=== PATIENT | male | born 1970 | race Caucasian/White ===

== ENCOUNTER 2019-09-10 04:34 | Inpatient (IN) | payer OTHER ==
[~2019-09-10] VITALS: Ht 190.5 cm; Wt 109.1 kg
--- NOTE | ~2019-09-10 | EC ---
PATIENT:SONAM MARTINEZ DATE OF SERVICE: 09/11/19 SEX: M MEDICAL RECORD: [id number] DATE OF : 72 LOCATION:D.M3 D.121 AGE OF PATIENT: 49 ADMISSION DATE: 09/11/19 REFERRING PHYSICIAN: INTERPRETING PHYSICIAN: IJEOMA FARFAN MD ECHOCARDIOGRAM REPORT ECHO CHARGES 4 ECHO COMPLETE Date: 09/12/19 CLINICAL DIAGNOSIS: BRADYCARDIA ECHOCARDIOGRAPHIC MEASUREMENTS (adult normal given) AC root (d.<3.7cm) 3.4 cm LV Septum d (<1.2 cm> 1.0 cm Valve Excursion 2.2 cm LV Septum (systole) 1.6 cm Left Atria (s.<4.0cm> 3.2 cm LVPW d(<1.2cm) 1.0 cm RV (d.<2.3cm) 2.8 cm LVPW (sytole) 1.4 cm LV diastole(<5.6CM) 7.1 cm MV E-F(>70mm/sec) cm LV systole 4.9 cm LVOT Diameter 2.3 cm MV exc.(>10mm) cm Est.ejection fraction (50-75%) % DOPPLER: LVIT cm/sec A 56.0 cm/sec E 103 cm/sec LA cm/sec RVSP 29.3 mmHg LVOT 94.0 cm/sec AOP1/2T m/s Asc. Ao 123 cm/sec RVOT 58.0 cm/sec RA cm/sec PA 112 cm/sec AV Gradient Peak 6.1 mmHg AV Mean 2.5 mmHg AV Area 3.5 cm MV Gradient Peak 4.7 mmHg MV Mean 1.9 mmHg MV Area cm COMMENTS: Range Management Specialist: Edgar SANDSOE Community Engagement Representative: 1 Dr. Farfan TAPE# PACS Pericardial Effusion N DATE OF SERVICE: 09/12/2019 FINDINGS: 1. Left ventricular chamber size is mildly dilated. Left ventricular systolic function is preserved at 60%. 2. Left atrium is within normal limits at 3.2 cm. Right atrium and right ventricular chamber sizes are mildly dilated. 3. Valvular structures have normal structure and motion. 4. Doppler interrogation reveals moderate mitral regurgitation, no other valvular insufficiency or stenosis. Pulmonary systolic pressure is estimated at ECHOCARDIOGRAM REPORT [id number] SONAM MARTINEZ 29 mmHg. 5. No evidence of pericardial effusion or left ventricular thrombus. TRANSINT:[id number] Voice Confirmation ID: [id number] DOCUMENT ID: [id number] IJEOMA FARFAN MD CC: [id number] DICTATION DATE: 09/12/19 134 CASTING MACHINE OPERATOR AUTOMATIC: 09/12/19 192 ADM IN [facility] [address] [id number]
--- NOTE | ~2019-09-10 | CN ---
PATIENT NAME:SONAM MARTINEZ MEDICAL RECORD: [id number] : 72 LOCATION:D. D.1210 ADMIT DATE: 09/11/19 ACCOUNT: [id number] CONSULTING PHYSICIAN: IJEOMA BARRETT MD REFERRING PHYSICIAN: LUIS CABRERA MD DATE OF CONSULTATION: 09/12/2019 CARDIOLOGY CONSULTATION DIAGNOSES: 1. Bradycardia. 2. Preoperative evaluation. HISTORY OF PRESENT ILLNESS: Mrs. Martinez presents with abdominal pain, found to have cholecystitis. She had bradycardia to the 50s, nothing below that was asymptomatic, not hemodynamically compromising. No chest pain, chest discomfort, or any cardiac symptomatology. Her EKG is with no ST-T abnormalities. PHYSICAL EXAMINATION: CONSTITUTIONAL/GENERAL APPEARANCE: Well nourished, well developed, appears stated age. EYES: Lids and conjunctivae noninjected. No discharge. No pallor. ENT: Lips within normal limit. No cyanosis. No pallor. NECK: Carotid arteries, bilateral normal upstroke. No bruits. No thrills. No jugular venous pressure or distention. CERVICAL LYMPH NODES: Nontender. Nonenlarged. THYROID: Not enlarged. No nodules. CARDIOVASCULAR: Precordial exam, nondisplaced. No heaves or pericardial thrills. Rate and rhythm, regular. Heart sounds, normal S1, normal S2. No S3, no gallop, no rub. Systolic murmur, not heard. Diastolic murmur, not heard. RESPIRATORY: Respiratory effort, unlabored. Normal curvature. No thoracic deformity. No chest wall tenderness. Percussion, resonant. Auscultation, clear. No wheezes, no rales, no rhonchi. ABDOMEN: Soft, nondistended, nontender. No abdominal pain, no vomiting and normal appetite. MUSCULOSKELETAL: No joint tenderness, normal gait, normal tone. SKIN: Warm and dry. OVERALL IMPRESSION: Bradycardia. At this time, no treatment is necessary for the bradycardia, proceed with surgery at low cardiac risk. TRANSINT:[id number] Voice Confirmation ID: [id number] DOCUMENT ID: [id number] IJEOMA BARRETT MD CC: [id number] DICTATION DATE: 09/12/19 1330 IT HELP DESK MANAGER: 09/12/192013 ADM IN [id number] [place] [address]
[2019-09-10] MEDS ORDERED: NEXIUM40 MG PO (04:43)
[2019-09-10 05:15] LABS: APPEARANCE CLEAR (CLEAR); BILIRUBIN NEGATIVE (NEGATIVE); COLOR YELLOW (YELLOW); GLUCOSE NEGATIVE (NEGATIVE); KETONE NEGATIVE (NEGATIVE); NITRITE NEGATIVE (NEGATIVE); PROTEIN NEGATIVE (NEGATIVE); SPECIFIC GRAVITY 1.005 (1.005-1.020); UROBILINOGEN NORMAL (NORMAL)
[2019-09-10 05:18] LABS: BASOPHILS 0.2 % (0-2); CALC OSMOLALITY 285 mosm/kg (275-300); CALCIUM 9.5 mg/dL (8.5-10.1); CARBON DIOXIDE 30.5 mmol/L (21.0-32.0); CHLORIDE - SERUM 104 mmol/L (98-107); CREATININE - SERUM 1.2 mg/dL (0.6-1.3); EOSINOPHILS 0.9 % (0-7); GLUCOSE 99 mg/dL (74-106); HEMATOCRIT 41.4 % (42.0-54.0); HEMOGLOBIN 13.5 g/dL (13.5-17.5); IMMATURE GRANULOCYTES 0.1 % (0-5); LYMPHOCYTES 11.1 % (15-50); MCH 28.8 pg (26.0-34.0); MCHC 32.6 g/dL (31.0-37.0); MCV 88.5 fL (80.0-100.0); MEAN PLATELET VOLUME 9.5 fL (7.4-10.4); MONOCYTES 6.3 % (2-11); NEUTROPHILS 81.4 % (40-80); PLATELET COUNT 246 10x3/uL (130-400); POTASSIUM - SERUM 3.4 mmol/L (3.5-5.1); RBC 4.68 10x6/uL (4.20-6.10); RDW 13.1 % (11.5-14.5); SODIUM 143 mmol/L (136-145); UREA NITROGEN 16 mg/dL (7-18); WBC 10.8 10x3/uL (4.8-10.8); eGFR NON AFRICAN AMERICAN 69 mL/min (90-120)
[2019-09-10 05:26] LABS: ALBUMIN 4.1 g/dL (3.4-5.0); ALKALINE PHOSPHATASE 108 U/L (46-116); ALT (SGPT) 24 U/L (10-68); AMYLASE - SERUM 41 U/L (25-115); BILIRUBIN - TOTAL 0.45 mg/dL (0.2-1.3); LIPASE 124 U/L (73-393); PROTEIN - SERUM 8.1 g/dL (6.4-8.2)
[2019-09-10 05:31] LABS: TROPONIN-I < 0.017 ng/mL (0.000-0.060)
[2019-09-10 05:37] LABS: APTT 37.4 SECONDS (22.8-39.4); INR 1.12 (0.85-1.17); PROTIME 13.9 SECONDS (11.6-15.0)
--- NOTE | 2019-09-10 06:35 | NUR ---
RESTING IN ROOM QUIETLY AT THIS TIME RESP EVEN AND UNLABORED
[2019-09-10 07:22] VITALS: BP 132/86
--- NOTE | 2019-09-10 08:35 | NUR ---
ARRIVE TO ROOM VIA WHEELCHAIR ACCOMPANIED BY STAFF AND FAMILY. AMBULATES TO BED. GAIT STEADY. ALERT AND ORIENTED X4. REWORK MACHINE OPERATOR ARRIVES TO ROOM FOR KUB. CONTINUE ADMISSION PROCESS AND SAFETY PRECAUTIONS. REFUSE SCDs.
[2019-09-10 10:06] VITALS: BP 132/86
[2019-09-10 11:24] VITALS: BP 119/67
--- NOTE | 2019-09-10 11:27 | NUR ---
ALERT AND ORIENTED X4. SITTING UP IN BED. DC TELEMETRY PER . INFORM OF SINUS CARLOS 50. TELEMETRY REMAINS DISCONTINUED.
[2019-09-10 16:40] VITALS: BP 101/56
--- NOTE | 2019-09-10 17:53 | NUR ---
ALERT AND ORIENTED X4. SITTING UP IN BED. RT FA IV INFUSING ORDERED. DENIES PAIN. DENIES SOB. TOBACCO DIP ALLOWED AT BEDSIDE PER . DENIES ANY NEEDS AT THIS TIME. CONTINUE PLAN OF CARE AND SAFETY PRECAUTIONS.
[2019-09-10 17:56] VITALS: Ht 190.5 cm; Wt 109.1 kg
[2019-09-10 19:35] VITALS: BP 120/72
--- NOTE | 2019-09-10 20:00 | NUR ---
EVENING ROUNDS COMPLETED. PT'S VSS. AA0X4, NO S/S OF DISTRESS. PT COMPLAINS OF DISCOMFORT IN RUQ. ALTHOUGH STATES HE FEELS "OK" IN GENERAL. PT DENIES ANY S/S OF N/V. NS INFUSING @100MLS/HR. NO TELEMTRY ON PT AT THIS TIME. PT FOUND WITH DIPPING TOBACCO. HE STATED "THE DOC SAYS HE IS OK WITH IT." PT DENIES ANY FURTHER NEEDS AT THIS TIME. WILL CPOC. CL WITHIN REACH.
[2019-09-10 23:53] VITALS: BP 106/55
--- NOTE | 2019-09-11 00:15 | NUR ---
PT'S HR 45. REASSESSED AND IT WAS 50. NO TELEMETRY ON PT AT THIS TIME PER DR NAQVI ORDER. PT DENIES ANY DISTRESS AT THIS TIME. WILL CTM.
[2019-09-11 04:23] VITALS: BP 100/59
--- NOTE | 2019-09-11 04:33 | NUR ---
PT PULSES CONTINUOUSLY STAYS ON HIGH 40'S AND LOW 50'S. CHECKED MANUALLY ON RADIALLY ARTERY, PULSE 50BPM. PT REFUSED TELEMETRY, STATES HE DOES NOT HAVE A HEART PROBLEM.
[2019-09-11 06:23] LABS: BASOPHILS 0.2 % (0-2); EOSINOPHILS 3.2 % (0-7); HEMATOCRIT 36.2 % (42.0-54.0); HEMOGLOBIN 11.5 g/dL (13.5-17.5); IMMATURE GRANULOCYTES 0.2 % (0-5); LYMPHOCYTES 24.2 % (15-50); MCH 28.7 pg (26.0-34.0); MCHC 31.8 g/dL (31.0-37.0); MCV 90.3 fL (80.0-100.0); MEAN PLATELET VOLUME 9.3 fL (7.4-10.4); MONOCYTES 7.4 % (2-11); NEUTROPHILS 64.8 % (40-80); PLATELET COUNT 202 10x3/uL (130-400); RBC 4.01 10x6/uL (4.20-6.10); RDW 13.4 % (11.5-14.5)
[2019-09-11 06:30] LABS: INR 1.16 (0.85-1.17); PROTIME 14.3 SECONDS (11.6-15.0)
[2019-09-11 06:31] LABS: APTT 38.6 SECONDS (22.8-39.4)
[2019-09-11 06:32] LABS: WBC 5.5 10x3/uL (4.8-10.8)
[2019-09-11 06:36] LABS: CALC OSMOLALITY 288 mosm/kg (275-300); CARBON DIOXIDE 29.1 mmol/L (21.0-32.0); CHLORIDE - SERUM 110 mmol/L (98-107); CREATININE - SERUM 1.1 mg/dL (0.6-1.3); GLUCOSE 93 mg/dL (74-106); SODIUM 145 mmol/L (136-145); UREA NITROGEN 12 mg/dL (7-18); eGFR NON AFRICAN AMERICAN 76 mL/min (90-120)
--- NOTE | 2019-09-11 08:58 | NUR ---
PT AWAKE AND ORIENTED, HAS BEEN UP BY SELF TO THE BATHROOM. VERY UPSET THIS A.M, SATING HE DOESN'T UNDERSTAND WHY HIS PULSE IS SO LOW AND DOES NOT UNDERSTAND WHY HE'S FEELING WORSE AFTER BIENG HERE SINCE FRIDAY. STATES HE SHOULD BE GETTING BETTER AND HE THINKS IT'S BECAUSE WE'RE PUTTING "ALL THIS CRAP" INTO HIM (REFERENCING N/S AND ANTIBIOTIC). PT WANTS TO SEE DR DE THIS MORNING. PT ACCAUSTED HOUSE KEEPER ASKING HER WHY SHE DIDN'T KNOW THE ANSWER TO ALL HIS QUESTIONS, WAS POLITELY INFORMED SHE WAS A CUSTOMER COUNTER ASSOCIATE NOT A MEDICAL PROFFESIONAL AND PT SCOFFED AT HER. INFORMED PT THAT I WOULD DO MY BEST OT FIND HIM SOME ANSWERES THIS MORNING BUT THAT HE WOULD NEED TO SPEAK TO THE DRTemitope WHEN HE ROUNDED TODAY. CL IN REACH, SRX2, NO FAMILY PRESENT AT BEDSIDE.
[2019-09-11 09:13] VITALS: BP 99/42
--- NOTE | 2019-09-11 10:01 | NUR ---
PT WAS SUPRISED TO SEE THAT THE NURSE HE HAD THE PREVIOUS NIGHT WAS A MALE. STATEED, USUALLY MEN AREN'T NURSES. PT MADE IT CLEAR HE THOUGHT LESS OF A MALE FOR BEING "JUST A NURSE". I INFORMED HIM THAT MY CHARGE NURSE TODAY WAS, INFACT, A MALE. HE WAS AGAIN SUPRISED IN A DISTASTFUL WAY. WENT ON TO INFORM HIM THAT THE ROUNDING PHYSCIAN WAS ACTAULLY A WOMAN TODAY. PT WAS SHOCKED. CL IN REACH, SRX2.
[2019-09-11 11:30] VITALS: BP 127/63
--- NOTE | 2019-09-11 12:11 | NUR ---
I have reviewed this patient and I concur with the Shift Assessment completed by the Licensed Practical Nurse today this shift.
[2019-09-11 16:55] VITALS: BP 114/61
--- NOTE | 2019-09-11 17:36 | NUR ---
PT AWAKE AND ORIENTED. NO COMPLAINTS OR CONCERNS AT THIS TIME. IS MUCH HAPPIER WITH HIS FULL LIQUID DIET COMPARED TO CLEAR. ALL QUESTIONS ANSWERED TO THE BEST OF MY ABILITY. PROVIDED PT EDUCATION ON POST-GALLBLADER REMOVAL DIET. CL IN REACH, SRX2, NO FAMILY AT BEDSIDE.
[2019-09-11 19:32] VITALS: BP 125/83
--- NOTE | 2019-09-11 19:40 | NUR ---
PT SITTING UP WATCHING TV. CL IN REACH. DENIES NEEDS AT THIS TIME. A/O X4. LUNGS CLEAR. BOWEL ACTIVE X4. DENIES PAIN AT THIS TIME WELL. UP AD EAMON NOT FALL RISK. IV RUNNING AT 100CC/HR OF NS. WILL CONTINUE TO MONITOR.
--- NOTE | 2019-09-12 02:21 | NUR ---
I have reviewed this patient and I concur with the Shift Assessment completed by the Licensed Practical Nurse today this shift.
[2019-09-12 05:04] VITALS: BP 127/64
[2019-09-12 05:54] LABS: CALC OSMOLALITY 284 mosm/kg (275-300); CALCIUM 8.1 mg/dL (8.5-10.1); CARBON DIOXIDE 26.4 mmol/L (21.0-32.0); CHLORIDE - SERUM 111 mmol/L (98-107); CREATININE - SERUM 0.9 mg/dL (0.6-1.3); GLUCOSE 97 mg/dL (74-106); POTASSIUM - SERUM 3.9 mmol/L (3.5-5.1); SODIUM 144 mmol/L (136-145); eGFR NON AFRICAN AMERICAN > 90 mL/min (90-120)
[2019-09-12 05:56] LABS: UREA NITROGEN 8 mg/dL (7-18)
[2019-09-12 05:59] LABS: BASOPHILS 0.2 % (0-2); EOSINOPHILS 3.7 % (0-7); HEMATOCRIT 34.9 % (42.0-54.0); HEMOGLOBIN 11.3 g/dL (13.5-17.5); IMMATURE GRANULOCYTES 0.2 % (0-5); MCH 28.8 pg (26.0-34.0); MCHC 32.4 g/dL (31.0-37.0); MCV 88.8 fL (80.0-100.0); MONOCYTES 6.8 % (2-11); NEUTROPHILS 64.1 % (40-80); PLATELET COUNT 220 10x3/uL (130-400); RBC 3.93 10x6/uL (4.20-6.10); WBC 5.8 10x3/uL (4.8-10.8)
[2019-09-12 07:36] VITALS: BP 120/60
--- NOTE | 2019-09-12 07:46 | NUR ---
PT RESTING PEACEFULLY WHEN I ENTERED, WOKE EASILY TO FOLLOW BASIC COMMANDS WHEN I OBTAINED VITAL SIGNS. WENT RIGHT BACK TO SLEEP. NO COMPLAINTS/CONCERNS VOICED, CL IN REACH, SRX2.
[2019-09-12 11:00] VITALS: BP 144/87
--- NOTE | 2019-09-12 11:02 | NUR ---
I have reviewed this patient and I concur with the Shift Assessment completed by the Licensed Practical Nurse today this shift.
--- NOTE | 2019-09-12 15:37 | NUR ---
PT C/O BACK PAIN, DENIED WANT FOR AFTERNOON TYLENOL EARILER, GAVE 1730 DOSE NOW FOR PAIN. NO OTHER COMPLAINTS OR CONCERNS AT THIS TIME. CL IN REACH, SRX2. NO FAMILY PRESENT AT BEDSIDE.
[2019-09-12 15:42] VITALS: BP 146/75
[2019-09-12 19:33] VITALS: BP 150/87
--- NOTE | 2019-09-12 20:00 | NUR ---
A/O WITH NO SIGNS OF ACUTE DISTRESS. IV TO THE RT FOREARM WITH NO REDNESS OR SWELLING NOTED. OBTAINED CONSENTS. PT REQUESTED THAT HE WANTED HIS GALLBLADDER TO BE SAVED SO THAT HE COULD "SEE WHAT HAS BEEN BOTHERNING HIM". WILL PASS INFO ON TO DAY SHIFT. DENIES NO FURTHER NEEDS AT THIS TIME. CONTINUE PLAN OF CARE.
[2019-09-12 23:44] VITALS: BP 144/76
[2019-09-13 05:20] VITALS: BP 122/72
--- NOTE | 2019-09-13 06:55 | NUR ---
CANCELED PT IS MALE AND UNCAPABLE OF BARING CHILDREN.
--- NOTE | 2019-09-13 07:15 | NUR ---
PT RESTING PEACEFULLY, CONCENTS SIGNED AND CHG BATH GIVEN ON CORROSION CONTROL TECHNICIAN. BREATHS EVEN, REGULAR AND UNLABORED. NO SINGS OR SYMPTOMS OF ACUTE DISTRESS NOTED AT THIS TIME. NO FAMILY PRESENT AT THIS TIME. CL IN REACH, SRX2.
[2019-09-13 07:17] LABS: CALC OSMOLALITY 283 mosm/kg (275-300); CALCIUM 8.6 mg/dL (8.5-10.1); CHLORIDE - SERUM 110 mmol/L (98-107); GLUCOSE 78 mg/dL (74-106); POTASSIUM - SERUM 4.1 mmol/L (3.5-5.1); SODIUM 144 mmol/L (136-145); UREA NITROGEN 7 mg/dL (7-18); eGFR NON AFRICAN AMERICAN 85 mL/min (90-120)
[2019-09-13 07:46] LABS: BASOPHILS 0.5 % (0-2); EOSINOPHILS 2.9 % (0-7); HEMATOCRIT 36.1 % (42.0-54.0); HEMOGLOBIN 11.8 g/dL (13.5-17.5); IMMATURE GRANULOCYTES 0.2 % (0-5); LYMPHOCYTES 24.7 % (15-50); MCH 29.1 pg (26.0-34.0); MCHC 32.7 g/dL (31.0-37.0); MCV 89.1 fL (80.0-100.0); NEUTROPHILS 64.7 % (40-80); PLATELET COUNT 234 10x3/uL (130-400); RBC 4.05 10x6/uL (4.20-6.10); WBC 6.3 10x3/uL (4.8-10.8)
[2019-09-13 09:48] VITALS: BP 127/77
--- NOTE | 2019-09-13 11:06 | NUR ---
PT TAKEN FOR SURGERY.
[2019-09-13] MEDS ORDERED: HYDROCODON-ACE1 EAC7 PO (12:38)
--- NOTE | 2019-09-13 17:34 | NUR ---
PT AMBULATED OUT BY SELF, DENIED WHEELCHIAR WHEN OFFERED BECAUSE HE DIDN'T WANT TO WAIT FOR ME FIND ONE. MOTHER DRIVING POV.
--- NOTE | 2019-09-14 08:09 | MORECARE ---
CASE MANAGEMENT DISCHARGE SUMMARY PATIENT: SONAM MARTINEZ UNIT: [id number] ADM DATE: 09/11/19 AGE: 49 : 72 SEX: M ROOM/BED: D.1210 AUTHOR: ZULY SIMON PHYSICIAN: REFERRING PHYSICIAN: LUIS CABRERA MD DATE OF SERVICE: 09/14/19 Discharge Plan Patient Name: SONAM MARTINEZ [facility] [facility] 1970 Planned Disposition: Home Anticipated Discharge Date: 09/13/19 Discharge Date: 09/13/2019 Expected LOS: 2 Initial Reviewer: [email or web address] Initial Review Date: 09/14/2019 Generated: 09/14/19 9:09 am Patient Name: SONAM MARTINEZ Page [phone] at 0809 All edits/amendments must be made on the electronic document DICTATION DATE: 09/14/19 08 DOORPERSON OR LUGGAGE PORTER: TRISTEN 09/14/19 08 RPT#: [id number] DC DATE:09/13/19 STATUS: DIS IN [facility] [address] [facility] [place] [address] END OF REPORT
== END 2019-09-13 17:35 | disposition home or self-care (01) | DRG 419 ==
LOC: D.ER 04:34 → D.M3 07:22 → OBSVTIME 07:49 → D.M3 09-11 17:22
PROVIDERS: Family Medicine; ADMIT Surgery; ATTEND Surgery
PROC: 0FT44ZZ Resection of Gallbladder, Percutaneous Endoscopic Approach (ICD-10-PCS; principal; 2019-09-13 11:00)
DX: K80.00 Calculus of gallbladder with acute cholecystitis without obstruction (principal); R00.1 Bradycardia, unspecified; Z72.0 Tobacco use